=== PATIENT | male | born 1935 | race Caucasian/White ===

== ENCOUNTER 2016-10-14 13:40 | Emergency (ER) | payer MEDICARE ==
[~2016-10-14 13:40] MED LIST: ALBUTEROL5 INH; ASAB PO; COMBIVENT INH; COREG12 PO; COREG3 PO; DIOV160 PO; DSS PO; DULERA 200 MCG/13 GM INH; DULERA 200 MCG/13 GM PO; FLOMAX4 PO; FLONASE NAS; FLORADIL INH; FLORASTOR250 MG PO; FORADIL INH; GLUCXL2.5 PO; IMDUR30 PO; K-TABS10 MEQ PO; KLOR-CON 1010 MEQ PO; L20 PO; L40 PO; LEVAQUIN5T PO; MEDROLPAK4 PO; NAMENDA10 MG PO; NASONEX NAS; NEBULIZER SOLUTION INH; NEXIUM40 PO; NORV25 PO; OMNICEF300 PO; P20 PO; PLAVIX PO; PRAVAC PO; PROAIR HFA INH; PROVHFA INH; QVAR 80 MCG80 MCG INH; RHINOAQ NAS; VITAMIN B-122500 MCG SL; ZITH250 PO; ZOCOR40 PO; ZOL50 PO; [UNRECOGNIZED DRUG - OTHER] PO; [UNRECOGNIZED DRUG - REMARK]
== END 2016-10-14 14:00 | disposition home or self-care (01) ==
LOC: ER 13:40
DX: Z48.02 Encounter for removal of sutures (principal); I12.9 Hypertensive chronic kidney disease with stage 1 through stage 4 chronic kidney disease, or unspecified chronic kidney disease; I50.9 Heart failure, unspecified; Z88.8 Allergy status to other drugs, medicaments and biological substances; Z79.82 Long term (current) use of aspirin; Z79.899 Other long term (current) drug therapy; Z79.52 Long term (current) use of systemic steroids
CPT/HCPCS: 99282